=== PATIENT | male | born 1945 | race Caucasian/White ===

== ENCOUNTER → 2023-01-05 | Outpatient (CLI) | payer MEDICARE | LOC: COL.RAD 10:47 | DX: Z13.6 Encounter for screening for cardiovascular disorders (principal); F17.201 Nicotine dependence, unspecified, in remission ==

== ENCOUNTER → 2023-06-22 | Outpatient (CLI) | payer MEDICARE | LOC: COL.LAB 18:17 | DX: Q18.1 Preauricular sinus and cyst (principal) ==